=== PATIENT | male | born 1980 | race Caucasian/White ===

== ENCOUNTER 2021-07-29 07:05 | Emergency (ER) | payer OTHER ==
[~2021-07-29] VITALS: Ht 193 cm; Wt 111.1 kg
--- NOTE | 2021-07-29 07:05 | NUR ---
BIBSELF C/O ABDOMINAL PAIN C2OLCMS AND PAIN INCREASED YESTERDAY; PT STARTED VOMITTING TODAY AT 0130. PT IS A&OX4. PT VITALS ARE WITHIN NORMAL LIMITS. BREATHING IS REGULAR AND UNLABORED. PT IS AT BEDSIDE. 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 WILL CONTINUE TO MONITOR.
[2021-07-29] MEDS ORDERED: IV NS 0.9% 1,000 ML BAG IV ONE (07:30)
[2021-07-29] MEDS ORDERED: ONDANSETRON HCL/PF 4 MG/2 ML VIAL IVP ONE (07:30)
[2021-07-29 07:46] LABS: BASOPHILS # (AUTO) 0.1 K/uL (0.0-0.2); BASOPHILS % (AUTO) 0.9 % (0.0-2.0); EOSINOPHILS % (AUTO) 1.5 % (0.0-6.0); HEMATOCRIT 48 % (39-51); HEMOGLOBIN 15.6 g/dL (13.5-17.5); LYMPHOCYTES # (AUTO) 1.5 K/uL (0.8-4.8); LYMPHOCYTES % (AUTO) 13.7 % (20.0-44.0); MEAN CORPUSCULAR HGB CONC 33 g/dl (31.0-36.0); MEAN CORPUSCULAR VOLUME 86 fL (80-96); MONOCYTES # (AUTO) 0.7 K/uL (0.1-1.30); MONOCYTES % (AUTO) 6.2 % (2.0-12.0); NEUTROPHILS # (AUTO) 8.7 K/uL (1.8-8.9); NEUTROPHILS % (AUTO) 77.7 % (43.0-81.0); PLATELET COUNT (AUTO) 422 K/uL (150-450); RED BLOOD CELL COUNT(AUTO) 5.52 MIL/uL (4.5-6.0); WHITE BLOOD COUNT (AUTO) 11.2 K/uL (4.3-11.0)
--- NOTE | 2021-07-29 07:52 | NUR ---
DR PEREZ AT BEDSIDE
[2021-07-29] MEDS ORDERED: MAG HYDROX/AL HYDROX/SIMETH 30 ML UDC PO ONE (08:00)
[2021-07-29] MEDS ORDERED: LIDOCAINE VISCOUS 2% UD 15 ML UDC MM ONE (08:00)
[2021-07-29] MEDS ORDERED: FAMOTIDINE/PF INJ 20 MG/2 ML VIAL IV ONE ×2 (08:00→08:12)
[2021-07-29 08:01] LABS: CALCIUM, SERUM 8.5 mg/dL (8.5-10.1); CREATININE 1.2 mg/dL (0.6-1.3); POTASSIUM 4.1 mmol/L (3.5-5.1)
--- NOTE | 2021-07-29 08:02 | NUR ---
ULTRASOUND AT BEDSIDE
[2021-07-29 08:06] LABS: ALBUMIN 3.9 g/dL (3.4-5.0); BILIRUBIN,DIRECT 0.1 mg/dL (0.0-0.2); BILIRUBIN,TOTAL 0.3 mg/dL (0.2-1.0); TOTAL PROTEIN, SERUM 7.9 g/dL (6.4-8.2)
[2021-07-29] MEDS ORDERED: ONDANSETRON HCL/PF 4 MG/2 ML VIAL ONE (08:11)
[2021-07-29] MEDS ORDERED: LIDOCAINE VISCOUS 2% UD 15 ML UDC ONE (08:11)
[2021-07-29] MEDS ORDERED: MAG HYDROX/AL HYDROX/SIMETH 30 ML UDC ONE (08:11)
[2021-07-29] MEDS ORDERED: ONDA4TAB5 PO (09:53)
[2021-07-29] MEDS ORDERED: FAMO-131 PO (09:53)
--- NOTE | 2021-07-29 10:20 | NUR ---
Patient discharged to home in stable condition. Written and verbal after care instructions given. Patient verbalizes understanding of instruction.IV removed. Catheter intact and site benign. Pressure and 4x4 applied to site. No bleeding noted.
[2021-07-29 10:21] VITALS: BP 161/92
== END 2021-07-29 10:22 | disposition home or self-care (01) ==
LOC: ER 07:09
DX: K80.20 Calculus of gallbladder without cholecystitis without obstruction (principal); R11.2 Nausea with vomiting, unspecified
CPT/HCPCS: 36415; 71045; 76705; 80048; 80076; 83690; 85025; 96361; 96374; 96375; 99285; J2405; J3490; J7030

== ENCOUNTER 2022-04-13 08:36 | Emergency (ER) | payer OTHER ==
[~2022-04-13] VITALS: Ht 195.6 cm; Wt 104.3 kg
[~2022-04-13 08:36] MED LIST: FAMO-131 PO; ONDA4TAB5 PO
--- NOTE | 2022-04-13 09:15 | NUR ---
DR BAUMAN AT BEDSIDE FOR EVAL
[2022-04-13] MEDS ORDERED: CYCLOBENZAPRINE 10 MG TABLET ONE (09:18)
[2022-04-13] MEDS ORDERED: KETOROLAC TROMETHAMINE INJ 30 MG/ML VIAL ONE (09:18)
[2022-04-13] MEDS ORDERED: CYCLOBENZAPRINE 10 MG TABLET PO ONE (09:30)
[2022-04-13] MEDS ORDERED: KETOROLAC TROMETHAMINE INJ 30 MG/ML VIAL IM ONE (09:30)
[2022-04-13] MEDS ORDERED: HYDROCODONE/APAP 5/325MG TABLET ONE (10:27)
[2022-04-13] MEDS ORDERED: HYDROCODONE/APAP 5/325MG TABLET PO ONE (10:30)
--- NOTE | 2022-04-13 11:04 | NUR ---
TELLERS SUPERVISOR AT BEDSIDE FOR XRAY
[2022-04-13] MEDS ORDERED: CYCL5TAB PO (11:26)
[2022-04-13] MEDS ORDERED: HYDR-4209 PO (11:26)
[2022-04-13] MEDS ORDERED: IBUP-1957 PO (11:26)
[2022-04-13] MEDS ORDERED: TRAMADOL HCL 50 MG TABLET PO ONE (11:30)
[2022-04-13 11:35] VITALS: BP 132/88
[2022-04-13] MEDS ORDERED: TRAMADOL HCL 50 MG TABLET ONE (11:41)
--- NOTE | 2022-04-13 11:45 | NUR ---
Patient discharged to home in stable condition. Written and verbal after care instructions given. Patient verbalizes understanding of instruction.
== END 2022-04-13 11:46 | disposition home or self-care (01) ==
LOC: ER 08:42
DX: M25.512 Pain in left shoulder (principal); M54.2 Cervicalgia; Z79.899 Other long term (current) drug therapy
CPT/HCPCS: 99284; 96372; 73030; J1885